=== PATIENT | male | born 1995 | race Hispanic/Latino ===

== ENCOUNTER 2020-04-10 13:31 | Emergency (ER) | payer SELFPAY ==
[2020-04-10 14:00] VITALS: BP 132/75
[2020-04-10] MEDS ORDERED: HYDROmorphone 2 MG/1 ML INJ IV ONE (14:05)
[2020-04-10] MEDS ORDERED: MIDAZOLAM 5 MG/5 ML INJ MDV IV ONE (14:53)
[2020-04-10] MEDS ORDERED: ETOMIDATE 20 MG/10 ML INJ IV ONE (14:54)
--- NOTE | 2020-04-10 15:11 | XRay Report ---
LEFT KNEE 2 VIEW(S) INDICATION / CLINICAL INFORMATION: dislocation COMPARISON: None available. FINDINGS: There is lateral subluxation of the patella. No fracture is identified. Signer Name: Marshal Howard MD Signed: 04/10/2020 3:06 PM Workstation Name: [id number]
--- NOTE | 2020-04-10 15:13 | Emergency Department Report ---
ED Lower Extremity HPI - General Chief Complaint: Extremity Injury, Lower Stated Complaint: LT KNEE DISLOCATED Time Seen by Provider: 04/10/20 14:06 Source: EMS Mode of arrival: Ambulatory Limitations: No Limitations - History of Present Illness Initial Comments: 24-year-old male presents to ED with left knee injury. Patient states he was pivoting, felt something pop in the left knee. Patient has obvious deformity present. He denies any numbness or tingling. Patient was given morphine 10 mg by EMS. MD Complaint: knee injury -: This afternoon Injury: Knee: Left Place: work Severity: severe Improves With: immobilization Worsens With: weight bearing, movement Associated Symptoms: snap/pop sensation - Related Data Previous Rx's Medication Instructions Recorded Last Taken Type Naproxen [Naprosyn] 500 mg PO BID #20 tablet 04/10/20 Unknown Rx traMADoL [Ultram] 50 mg PO Q6HR PRN #7 tablet 04/10/20 Unknown Rx Allergies Allergy/AdvReac Type Severity Reaction Status Date / Time No Known Allergies Allergy Unverified 04/10/20 14:02 ED Review of Systems ROS: Stated complaint: LT KNEE DISLOCATED Other details as noted in HPI Comment: All other systems reviewed and negative Musculoskeletal: as per HPI Neurological: denies: numbness, paresthesias ED Past Medical Hx - Past Medical History Previous Medical History?: No - Surgical History Past Surgical History?: Yes Additional Surgical History: tonsils, ear tubes - Social History Smoking Status: Unknown if ever smoked Substance Use Type: None - Medications Home Medications: Home Medications Medication Instructions Recorded Confirmed Last Taken Type Naproxen [Naprosyn] 500 mg PO BID #20 tablet 04/10/20 Unknown Rx traMADoL [Ultram] 50 mg PO Q6HR PRN #7 tablet 04/10/20 Unknown Rx ED Physical Exam - General Limitations: No Limitations General appearance: alert, in no apparent distress, obese - Head Head exam: Present: atraumatic, normocephalic - Eye Eye exam: Present: normal appearance - ENT ENT exam: Present: mucous membranes moist - Neck Neck exam: Present: normal inspection - Respiratory Respiratory exam: Present: normal lung sounds bilaterally. Absent: respiratory distress - Cardiovascular Cardiovascular Exam: Present: regular rate, normal rhythm - GI/Abdominal GI/Abdominal exam: Present: soft. Absent: distended - Extremities Exam Extremities exam: Present: other (Obvious deformity of left knee, patella appears to be dislocated laterally; sensation intact; DP pulse intact) - Neurological Exam Neurological exam: Present: alert, oriented X3. Absent: motor sensory deficit - Psychiatric Psychiatric exam: Present: normal affect, normal mood - Skin Skin exam: Present: warm, dry, intact, normal color ED Course Vital Signs 04/10/20 13:55 Temperature 98.6 F Pulse Rate 103 H Respiratory 18 Rate Blood Pressure 132/75 Blood Pressure 132/75 [Right] O2 Sat by Pulse 100 Oximetry ED Lower Extremity MDM - Radiology Data Radiology results: report reviewed, image reviewed - Medical Decision Making 24-year-old male presents to ED with left patellar dislocation, which was reduced. Repeat x-rays show normal alignment. Patient placed in knee immobilizer and given crutches. He has been advised to follow-up with orthopedics. Prescriptions given. Return precautions given. - Differential Diagnosis Fracture, dislocation Critical care attestation.: If time is entered above; I have spent that time in minutes in the direct care of this critically ill patient, excluding procedure time. ED Disposition Clinical Impression: Closed dislocation of left patella Disposition: DC-01 TO HOME OR SELFCARE Is pt being admited?: No Condition: Stable Instructions: Patellar Dislocation, How to Use a Knee Brace Prescriptions: Naproxen [Naprosyn] 500 mg PO BID #20 tablet traMADoL [Ultram] 50 mg PO Q6HR PRN #7 tablet PRN Reason: Pain Referrals: VALERIA MCCANN MD [Staff Physician] - 3-5 Days Forms: Work/School Release Form Time of Disposition: 16:54
--- NOTE | 2020-04-10 15:39 | XRay Report ---
LEFT KNEE 2 VIEWS 3:11 PM INDICATION: injury; post reduction. COMPARISON: Earlier today. FINDINGS: Lateral patellofemoral dislocation has been reduced. Alignment is normal. No fracture is seen. There is a small joint effusion. Peripatellar soft tissue swelling is noted. IMPRESSION: 1. Satisfactory postreduction appearance. Signer Name: Denis Tavares MD Signed: 04/10/2020 3:34 PM Workstation Name: [id number]
[2020-04-10] MEDS ORDERED: MIDAZOLAM 5 MG/5 ML INJ MDV IV NR ×2 (16:00)
== END 2020-04-10 18:20 | disposition home or self-care (01) ==
LOC: ED 13:31
DX: S83.005A Unspecified dislocation of left patella, initial encounter (principal); X58.XXXA Exposure to other specified factors, initial encounter; Y93.89 Activity, other specified; Y92.89 Other specified places as the place of occurrence of the external cause; Y99.8 Other external cause status
CPT/HCPCS: 73560; 96374; 99283; J1170; J2250